=== PATIENT | male | born 1960 | race African-American/Black ===

== ENCOUNTER 2020-11-19 12:20 | Emergency (ER) | payer MEDICAID ==
[~2020-11-19] VITALS: Ht 175.3 cm; Wt 59.1 kg
[2020-11-19] MEDS ORDERED: POTA20LI36 PO (12:51)
[2020-11-19] MEDS ORDERED: SENN8.6T20 PO (12:51)
[2020-11-19] MEDS ORDERED: APIX5TAB PO (12:51)
[2020-11-19] MEDS ORDERED: POLY17PO47 PO (12:51)
[2020-11-19] MEDS ORDERED: BUME1TAB34 PO (12:51)
[2020-11-19] MEDS ORDERED: TAMS-13 PO (12:51)
[2020-11-19 14:36] VITALS: BP 101/70
== END 2020-11-19 15:38 | disposition home or self-care (01) ==
LOC: EMS 12:23
DX: R18.8 Other ascites (principal); R14.0 Abdominal distension (gaseous); R10.84 Generalized abdominal pain; I50.9 Heart failure, unspecified
CPT/HCPCS: 49083; 76942; 99284; 99285; Z7502

== ENCOUNTER 2020-11-29 12:55 | Emergency (ER) | payer MEDICAID ==
[~2020-11-29] VITALS: Ht 167.6 cm; Wt 63.6 kg
[~2020-11-29 12:55] MED LIST: APIX5TAB PO; BUME1TAB34 PO; POLY17PO47 PO; POTA20LI36 PO; SENN8.6T20 PO; TAMS-13 PO
[2020-11-29] MEDS ORDERED: [UNRECOGNIZED DRUG - CODE] IV (13:04)
[2020-11-29] MEDS ORDERED: HYDR-4396 PO (13:19)
[2020-11-29] MEDS ORDERED: SIME80TA12 PO (13:20)
[2020-11-29] MEDS ORDERED: POLY17PO PO (13:21)
[2020-11-29] MEDS ORDERED: MIDO5TAB29 PO (13:22)
[2020-11-29] MEDS ORDERED: LORA-999 PO (13:23)
[2020-11-29 14:34] LABS: BASOPHILS % (AUTO) 0.7 % (0.0-2.0); EOSINOPHILS % (AUTO) 0.6 % (1.0-6.0); HEMATOCRIT 32.2 % (41-53); HEMOGLOBIN 10.5 g/dL (13.5-17.5); LYMPHOCYTES # (AUTO) 1.3 K/uL (1.0-4.8); LYMPHOCYTES % (AUTO) 20.3 % (22.0-44.0); MEAN CORPUSCULAR HEMOGLOBIN 26.8 pg (26.0-34.0); MEAN CORPUSCULAR HGB CONC 32.7 G/dL (31.0-37.0); MEAN CORPUSCULAR VOLUME 82 fL (80-100); MONOCYTES # (AUTO) 0.5 K/uL (0.1-1.0); MONOCYTES % (AUTO) 7.6 % (2.0-9.0); NEUTROPHILS # (AUTO) 4.7 K/uL (1.8-7.7); NEUTROPHILS % (AUTO) 70.8 % (40.0-70.0); PLATELET COUNT (AUTO) 350 K/uL (150-450); RED BLOOD CELL COUNT(AUTO) 3.93 MIL/uL (4.50-5.90); RED CELL DISTRIBUTION WIDTH 19.8 % (11.5-14.5)
[2020-11-29 14:47] LABS: INR 1.1 (0.9-1.1); PROTHROMBIN TIME 11.6 SEC (9.4-11.6)
[2020-11-29 14:48] LABS: ANION GAP 9 mmol/L (8-16); CALCIUM, TOTAL 8.8 mg/dL (8.8-10.5); CARBON DIOXIDE 27 mmol/L (22-29); CHLORIDE 99 mmol/L (98-107); CREATININE 1.31 mg/dL (0.60-1.30); GLOMERULAR FILTR. RATE CALC > 60 mL/min (>60); GLUCOSE,RANDOM 138 mg/dL (70-110); POTASSIUM 3.7 mmol/L (3.5-5.1); SODIUM SERUM 135 mmol/L (136-145); UREA NITROGEN, BLOOD 21 mg/dL (7-18)
[2020-11-29 14:53] LABS: ALANINE AMINOTRANSFERASE 24 U/L (12-78); ALBUMIN 2.3 g/dL (3.4-5.0); ALKALINE PHOSPHATASE 129 U/L (46-116); ASPARTATE AMINOTRANSFERASE 26 U/L (15-37); B-TYPE NATRIURETIC PEPTIDE 3060 pg/mL (0-100); BILIRUBIN,TOTAL 1.3 mg/dL (0.1-1.0); LIPASE 16 U/L (73-393); TOTAL PROTEIN, SERUM 7.5 g/dL (6.4-8.2)
[2020-11-29 15:50] VITALS: BP 118/79
[2020-11-29 16:59] LABS: SPECIMENTYPE,BODY FLUID ASP
[2020-11-29 18:52] LABS: APPEARANCE,SPUN,BODY FLUID HAZY (CLEAR); APPEARANCE,UNSPUN,BODY FLUID SLIGHTLY CLOUDY (CLEAR)
[2020-11-29 18:54] LABS: BASOPHILS,BODY FLUID 0 %; COLOR,BODY FLUID YELLOW (LT YELLOW); EOSINOPHILS,BF (ANAL) 0 %; LYMPHOCYTES,BODY FLUID 12 %; MONOCYTES,BODY FLUID 6 %; NEUTROPHILS,BODY FLUID 82 %; TOTAL VOLUME,BODY FLUID 2225 mL; WBC, BODY FLUID 180 /cu. mm.
== END 2020-11-29 17:41 | disposition home or self-care (01) ==
LOC: EMS 12:57
DX: R18.8 Other ascites (principal); I11.0 Hypertensive heart disease with heart failure; I50.9 Heart failure, unspecified; D64.9 Anemia, unspecified
CPT/HCPCS: 49083; 71045; 76942; 80053; 83690; 83880; 83986; 85025; 85610; 85730; 87070; 87205; 89051; 93005; 99285; 36415-L1; 36415-TC

== ENCOUNTER 2020-12-13 09:06 | Day surgery (SDC) | payer OTHER ==
[2020-12-11 15:00] LABS: COVID AG,FIA SOURCE NASOPHARYNGEAL
[~2020-12-13] VITALS: Ht 175.3 cm; Wt 71.8 kg
[~2020-12-13 09:06] MED LIST changes: +HYDR-4396 PO; +LORA-999 PO; +MIDO5TAB29 PO; +MORP60TA49 PO; +POLY17PO PO; +SIME80TA12 PO; +SODIUM CHLORIDE 0.9% 1,000 ML IV ONE; +SODIUM CHLORIDE 0.9% 1,000 ML ONE; +[UNRECOGNIZED DRUG - CODE] IV
[2020-12-13] MEDS ORDERED: SODIUM CHLORIDE 0.9% 1,000 ML ONE (09:20)
== END 2020-12-13 11:25 | disposition home or self-care (01) ==
LOC: SURGERY 09:06
PROVIDERS: ATTEND Hospitalist
DX: R18.8 Other ascites (principal)
CPT/HCPCS: 49083; 87426; C9803; J7030 ×2; 76942

== ENCOUNTER 2020-12-19 22:17 | Inpatient (IN) | payer MEDICAID, OTHER ==
[~2020-12-19] VITALS: Ht 175.3 cm; Wt 64.8 kg
[~2020-12-19 22:17] MED LIST changes: -SODIUM CHLORIDE 0.9% 1,000 ML IV ONE; -SODIUM CHLORIDE 0.9% 1,000 ML ONE
[2020-12-19] MEDS ORDERED: MORP1AMP6 IVP (22:45)
[2020-12-19 23:19] LABS: BASOPHILS % (AUTO) 0.2 % (0.0-2.0); EOSINOPHILS % (AUTO) 0.7 % (1.0-6.0); HEMOGLOBIN 9.9 g/dL (13.5-17.5); LYMPHOCYTES # (AUTO) 0.7 K/uL (1.0-4.8); LYMPHOCYTES % (AUTO) 8.8 % (22.0-44.0); MEAN CORPUSCULAR HEMOGLOBIN 27.5 pg (26.0-34.0); MEAN CORPUSCULAR HGB CONC 33.2 G/dL (31.0-37.0); MEAN CORPUSCULAR VOLUME 83 fL (80-100); MONOCYTES # (AUTO) 0.6 K/uL (0.1-1.0); MONOCYTES % (AUTO) 7.3 % (2.0-9.0); PLATELET COUNT (AUTO) 395 K/uL (150-450); RED BLOOD CELL COUNT(AUTO) 3.62 MIL/uL (4.50-5.90); RED CELL DISTRIBUTION WIDTH 20.3 % (11.5-14.5)
[2020-12-19 23:28] LABS: ANION GAP 5 mmol/L (8-16); CALCIUM, TOTAL 8.9 mg/dL (8.8-10.5); CARBON DIOXIDE 29 mmol/L (22-29); CHLORIDE 101 mmol/L (98-107); CREATININE 1.32 mg/dL (0.60-1.30); GLOMERULAR FILTR. RATE CALC > 60 mL/min (>60); GLUCOSE,RANDOM 124 mg/dL (70-110); POTASSIUM 3.6 mmol/L (3.5-5.1); SODIUM SERUM 135 mmol/L (136-145); UREA NITROGEN, BLOOD 20 mg/dL (7-18)
[2020-12-19 23:33] LABS: ALANINE AMINOTRANSFERASE 16 U/L (12-78); ALKALINE PHOSPHATASE 125 U/L (46-116); ASPARTATE AMINOTRANSFERASE 19 U/L (15-37); BILIRUBIN,TOTAL 0.9 mg/dL (0.1-1.0); LIPASE 24 U/L (73-393); TOTAL PROTEIN, SERUM 7.2 g/dL (6.4-8.2)
[2020-12-20] MEDS ORDERED: MORPHINE SULFATE 4 MG/ML SYRINGE IVP ONE
[2020-12-20] MEDS ORDERED: LORazepam 0.5 MG TABLET PO PRN (00:15)
[2020-12-20] MEDS ORDERED: ONDANSETRON HCL 4 MG/2 ML VIAL IVP PRN (00:15)
[2020-12-20] MEDS ORDERED: HYDROCODONE/ACETAMINOPHEN 5-325 MG TABLET PO ONE (00:15)
[2020-12-20] MEDS ORDERED: TAMSULOSIN HCL 0.4 MG CAPSULE PO ONE (00:15)
[2020-12-20 00:28] LABS: % IRON SATURATION 13.1 % (30-44)
[2020-12-20 00:36] LABS: COVID AG,FIA SOURCE NASOPHARYNGEAL
[2020-12-20] MEDS: MORPHINE SULFATE 4 MG/ML SYRINGE IVP PRN ×2 (03:01→20:22)
[2020-12-20 04:37] VITALS: BP 89/67
[2020-12-20 07:47] VITALS: BP 96/65
[2020-12-20] MEDS ORDERED: HEPARIN SODIUM,PORCINE 5,000 UNITS/ML VIAL SQ SCH (08:00)
[2020-12-20] MEDS ORDERED: MIDODRINE HCL 5 MG TABLET PO SCH (09:00)
[2020-12-20] MEDS: BUMETANIDE 0.25 MG/ML 4 ML VIAL IVP SCH ×3 (09:00→20:21)
[2020-12-20] MEDS ORDERED: MILRINONE LACTATE IVP SCH (09:00)
[2020-12-20] MEDS: POTASSIUM CHLORIDE 20 MEQ ER TABLET PO SCH ×2 (09:00→20:22)
[2020-12-20] MEDS ORDERED: BUMETANIDE 1 MG TABLET PO SCH (09:00)
[2020-12-20] MEDS: SENNA 187 MG TABLET PO SCH ×2 (09:29→20:17)
[2020-12-20] MEDS: SIMETHICONE 80 MG CHEWABLE TABLET PO SCH ×3 (09:29→20:17)
[2020-12-20] MEDS: ACETAMINOPHEN 325 MG TABLET PO PRN ×2 (10:05→15:54)
[2020-12-20 11:06] VITALS: BP 104/67
[2020-12-20 15:30] VITALS: BP 106/73
[2020-12-20 19:44] VITALS: BP 117/78
[2020-12-20] MEDS: TAMSULOSIN HCL 0.4 MG CAPSULE PO SCH (20:17)
[2020-12-20] MEDS: APIXABAN 5 MG TABLET PO SCH (20:23)
[2020-12-20 23:40] VITALS: BP 103/64
[2020-12-21] MEDS: MORPHINE SULFATE 4 MG/ML SYRINGE IVP PRN ×4 (03:23→22:42)
[2020-12-21 04:07] VITALS: BP 108/62
[2020-12-21 06:51] LABS: BASOPHILS % (AUTO) 0.6 % (0.0-2.0); EOSINOPHILS % (AUTO) 0.8 % (1.0-6.0); HEMATOCRIT 29.2 % (41-53); HEMOGLOBIN 9.7 g/dL (13.5-17.5); LYMPHOCYTES # (AUTO) 0.9 K/uL (1.0-4.8); LYMPHOCYTES % (AUTO) 15.4 % (22.0-44.0); MEAN CORPUSCULAR HEMOGLOBIN 27.6 pg (26.0-34.0); MEAN CORPUSCULAR HGB CONC 33.3 G/dL (31.0-37.0); MEAN CORPUSCULAR VOLUME 83 fL (80-100); MONOCYTES # (AUTO) 0.5 K/uL (0.1-1.0); MONOCYTES % (AUTO) 8.1 % (2.0-9.0); NEUTROPHILS # (AUTO) 4.4 K/uL (1.8-7.7); NEUTROPHILS % (AUTO) 75.1 % (40.0-70.0); PLATELET COUNT (AUTO) 379 K/uL (150-450); RED BLOOD CELL COUNT(AUTO) 3.52 MIL/uL (4.50-5.90); RED CELL DISTRIBUTION WIDTH 20.5 % (11.5-14.5)
[2020-12-21 07:04] VITALS: BP 113/68
[2020-12-21 07:11] LABS: ALANINE AMINOTRANSFERASE 16 U/L (12-78); ALBUMIN 1.9 g/dL (3.4-5.0); ALKALINE PHOSPHATASE 111 U/L (46-116); ANION GAP 4 mmol/L (8-16); ASPARTATE AMINOTRANSFERASE 22 U/L (15-37); BILIRUBIN,TOTAL 0.7 mg/dL (0.1-1.0); CALCIUM, TOTAL 8.3 mg/dL (8.8-10.5); CARBON DIOXIDE 31 mmol/L (22-29); CHLORIDE 100 mmol/L (98-107); CREATININE 1.11 mg/dL (0.60-1.30); GLOMERULAR FILTR. RATE CALC > 60 mL/min (>60); GLUCOSE,RANDOM 119 mg/dL (70-110); POTASSIUM 3.2 mmol/L (3.5-5.1); SODIUM SERUM 135 mmol/L (136-145); TOTAL PROTEIN, SERUM 6.8 g/dL (6.4-8.2); UREA NITROGEN, BLOOD 21 mg/dL (7-18)
[2020-12-21] MEDS: APIXABAN 5 MG TABLET PO SCH ×2 (08:31→21:06)
[2020-12-21] MEDS: POTASSIUM CHLORIDE 20 MEQ ER TABLET PO SCH ×2 (08:31→21:00)
[2020-12-21] MEDS: BUMETANIDE 0.25 MG/ML 4 ML VIAL IVP SCH ×3 (08:31→21:07)
[2020-12-21] MEDS: SENNA 187 MG TABLET PO SCH ×2 (08:43→21:06)
[2020-12-21] MEDS: SIMETHICONE 80 MG CHEWABLE TABLET PO SCH ×3 (08:43→21:06)
[2020-12-21 11:02] VITALS: BP 100/62
[2020-12-21] MEDS: LACTULOSE 20 GM/30 ML SOLUTION UDCUP PO SCH ×3 (12:46→21:07)
[2020-12-21 15:47] VITALS: BP 132/71
[2020-12-21 19:05] VITALS: BP 127/84
[2020-12-21] MEDS: TAMSULOSIN HCL 0.4 MG CAPSULE PO SCH (21:06)
[2020-12-21 23:30] VITALS: BP 107/66
[2020-12-22] MEDS: ACETAMINOPHEN 325 MG TABLET PO PRN (00:02)
[2020-12-22 04:56] VITALS: BP 118/64
[2020-12-22 06:47] LABS: ALANINE AMINOTRANSFERASE 18 U/L (12-78); ALKALINE PHOSPHATASE 113 U/L (46-116); ANION GAP 4 mmol/L (8-16); ASPARTATE AMINOTRANSFERASE 21 U/L (15-37); BILIRUBIN,TOTAL 0.8 mg/dL (0.1-1.0); CALCIUM, TOTAL 8.8 mg/dL (8.8-10.5); CARBON DIOXIDE 30 mmol/L (22-29); CHLORIDE 103 mmol/L (98-107); GLOMERULAR FILTR. RATE CALC > 60 mL/min (>60); GLUCOSE,RANDOM 88 mg/dL (70-110); POTASSIUM 4.3 mmol/L (3.5-5.1); SODIUM SERUM 137 mmol/L (136-145); TOTAL PROTEIN, SERUM 7.1 g/dL (6.4-8.2); UREA NITROGEN, BLOOD 17 mg/dL (7-18)
[2020-12-22 07:09] LABS: BASOPHILS % (AUTO) 0.5 % (0.0-2.0); EOSINOPHILS % (AUTO) 2.5 % (1.0-6.0); HEMATOCRIT 31.9 % (41-53); HEMOGLOBIN 10.5 g/dL (13.5-17.5); LYMPHOCYTES # (AUTO) 1.3 K/uL (1.0-4.8); LYMPHOCYTES % (AUTO) 19.7 % (22.0-44.0); MEAN CORPUSCULAR HEMOGLOBIN 27.3 pg (26.0-34.0); MEAN CORPUSCULAR HGB CONC 32.9 G/dL (31.0-37.0); MEAN CORPUSCULAR VOLUME 83 fL (80-100); MONOCYTES # (AUTO) 0.6 K/uL (0.1-1.0); MONOCYTES % (AUTO) 8.3 % (2.0-9.0); NEUTROPHILS # (AUTO) 4.6 K/uL (1.8-7.7); PLATELET COUNT (AUTO) 445 K/uL (150-450); RED BLOOD CELL COUNT(AUTO) 3.84 MIL/uL (4.50-5.90); RED CELL DISTRIBUTION WIDTH 20.4 % (11.5-14.5)
[2020-12-22 07:37] VITALS: BP 110/71
[2020-12-22] MEDS: SIMETHICONE 80 MG CHEWABLE TABLET PO SCH ×3 (09:07→21:21)
[2020-12-22] MEDS: SENNA 187 MG TABLET PO SCH ×2 (09:07→21:21)
[2020-12-22] MEDS: POTASSIUM CHLORIDE 20 MEQ ER TABLET PO SCH ×2 (09:07→21:22)
[2020-12-22] MEDS: LACTULOSE 20 GM/30 ML SOLUTION UDCUP PO SCH ×3 (09:07→21:23)
[2020-12-22] MEDS: APIXABAN 5 MG TABLET PO SCH (09:07)
[2020-12-22] MEDS: BUMETANIDE 0.25 MG/ML 4 ML VIAL IVP SCH ×3 (09:07→21:00)
[2020-12-22 10:54] VITALS: BP 140/85
[2020-12-22 15:13] VITALS: BP 126/65
[2020-12-22 19:17] VITALS: BP 113/83
[2020-12-22] MEDS: MORPHINE SULFATE 4 MG/ML SYRINGE IVP PRN (19:34)
[2020-12-22] MEDS ORDERED: HYDROCODONE/ACETAMINOPHEN 5-325 MG TABLET PO PRN (21:15)
[2020-12-22] MEDS ORDERED: BUMETANIDE 1 MG TABLET PO ONE (21:15)
[2020-12-22] MEDS: TAMSULOSIN HCL 0.4 MG CAPSULE PO SCH (21:21)
[2020-12-22 23:38] VITALS: BP 109/78
[2020-12-23 04:54] VITALS: BP 99/61
[2020-12-23 06:44] VITALS: BP 129/72
[2020-12-23 06:50] LABS: BASOPHILS % (AUTO) 0.7 % (0.0-2.0); EOSINOPHILS % (AUTO) 2.5 % (1.0-6.0); HEMATOCRIT 30.5 % (41-53); HEMOGLOBIN 10.1 g/dL (13.5-17.5); LYMPHOCYTES # (AUTO) 1.2 K/uL (1.0-4.8); LYMPHOCYTES % (AUTO) 21.3 % (22.0-44.0); MEAN CORPUSCULAR HEMOGLOBIN 27.6 pg (26.0-34.0); MEAN CORPUSCULAR HGB CONC 33.1 G/dL (31.0-37.0); MEAN CORPUSCULAR VOLUME 83 fL (80-100); MONOCYTES # (AUTO) 0.5 K/uL (0.1-1.0); MONOCYTES % (AUTO) 8.3 % (2.0-9.0); NEUTROPHILS # (AUTO) 3.7 K/uL (1.8-7.7); NEUTROPHILS % (AUTO) 67.2 % (40.0-70.0); PLATELET COUNT (AUTO) 409 K/uL (150-450); RED BLOOD CELL COUNT(AUTO) 3.66 MIL/uL (4.50-5.90)
[2020-12-23 06:58] LABS: ALANINE AMINOTRANSFERASE 24 U/L (12-78); ALKALINE PHOSPHATASE 107 U/L (46-116); ANION GAP 6 mmol/L (8-16); ASPARTATE AMINOTRANSFERASE 34 U/L (15-37); BILIRUBIN,TOTAL 0.6 mg/dL (0.1-1.0); CALCIUM, TOTAL 8.4 mg/dL (8.8-10.5); CARBON DIOXIDE 29 mmol/L (22-29); CHLORIDE 102 mmol/L (98-107); CREATININE 1.08 mg/dL (0.60-1.30); GLOMERULAR FILTR. RATE CALC > 60 mL/min (>60); GLUCOSE,RANDOM 87 mg/dL (70-110); POTASSIUM 3.4 mmol/L (3.5-5.1); SODIUM SERUM 137 mmol/L (136-145); TOTAL PROTEIN, SERUM 6.9 g/dL (6.4-8.2); UREA NITROGEN, BLOOD 16 mg/dL (7-18)
[2020-12-23 07:57] VITALS: BP 106/61
[2020-12-23] MEDS: SENNA 187 MG TABLET PO SCH ×2 (08:24→20:17)
[2020-12-23] MEDS: SIMETHICONE 80 MG CHEWABLE TABLET PO SCH ×3 (08:24→20:17)
[2020-12-23] MEDS: POTASSIUM CHLORIDE 20 MEQ ER TABLET PO SCH ×2 (08:24→20:17)
[2020-12-23] MEDS: LACTULOSE 20 GM/30 ML SOLUTION UDCUP PO SCH ×3 (08:24→20:17)
[2020-12-23 08:37] LABS: PROTHROMBIN TIME 11.1 SEC (9.4-11.6)
[2020-12-23] MEDS: BUMETANIDE 0.25 MG/ML 4 ML VIAL IVP SCH ×3 (09:00→20:17)
[2020-12-23 11:58] VITALS: BP 96/65
[2020-12-23] MEDS ORDERED: ACET-3207 PO (13:09)
[2020-12-23 16:30] VITALS: BP 104/68
[2020-12-23 19:39] VITALS: BP 104/68
[2020-12-23] MEDS: TAMSULOSIN HCL 0.4 MG CAPSULE PO SCH (20:18)
== END 2020-12-23 23:00 | disposition short-term general hospital (02) | DRG 194 ==
LOC: EMS 22:25 → 5S 12-20 02:20
PROVIDERS: ADMIT Internal Medicine; ATTEND Internal Medicine
PROC: 0W9G3ZZ Drainage of Peritoneal Cavity, Percutaneous Approach (ICD-10-PCS; principal; 2020-12-23)
DX: I50.23 Acute on chronic systolic (congestive) heart failure (principal); E43 Unspecified severe protein-calorie malnutrition; N17.9 Acute kidney failure, unspecified; R18.8 Other ascites; N13.8 Other obstructive and reflux uropathy; I42.9 Cardiomyopathy, unspecified; N13.9 Obstructive and reflux uropathy, unspecified; F41.9 Anxiety disorder, unspecified; F17.210 Nicotine dependence, cigarettes, uncomplicated; Z20.822 Contact with and (suspected) exposure to COVID-19; K76.9 Liver disease, unspecified; N40.1 Benign prostatic hyperplasia with lower urinary tract symptoms; Z79.01 Long term (current) use of anticoagulants; Z91.19 Patient's noncompliance with other medical treatment and regimen; Z68.21 Body mass index [BMI] 21.0-21.9, adult
CPT/HCPCS: 49083; 74022; 76942; 80053; 82140; 83540; 83550; 83690; 84145; 84484; 85025; 85610; 85730; 93005; 93306; 99285; J2270; J2405; J3490

== ENCOUNTER 2020-12-29 14:49 | Emergency (ER) | payer MEDICAID ==
[~2020-12-29] VITALS: Ht 185.4 cm; Wt 59.1 kg
[~2020-12-29 14:49] MED LIST changes: +ACET-3207 PO; -MIDO5TAB29 PO; -MORP60TA49 PO; -POLY17PO PO; -POLY17PO47 PO; -SIME80TA12 PO
[2020-12-29 15:12] VITALS: BP 78/60
== END 2020-12-29 15:19 | disposition left against medical advice (07) ==
LOC: EMS 14:58
DX: R10.84 Generalized abdominal pain (principal); I50.9 Heart failure, unspecified; F41.9 Anxiety disorder, unspecified; F17.210 Nicotine dependence, cigarettes, uncomplicated
CPT/HCPCS: 99283; Z7502